=== PATIENT | male | born 1980 | race Caucasian/White ===

== ENCOUNTER 2021-05-13 12:21 | Emergency (ER) | payer SELFPAY ==
[~2021-05-13] VITALS: Ht 175.3 cm; Wt 90.7 kg
[2021-05-13] MEDS ORDERED: CASIRIVIMAB/IMDEVIMAB 10 ML in SODIUM CHLORIDE 0.9% 100 ML IV ONE ×4 (12:30)
[2021-05-13] MEDS ORDERED: SODIUM CHLORIDE 0.9% 500ML 500 ML IV ONE (12:45)
[2021-05-13] MEDS ORDERED: IBUPROFEN 800MG/ 200ML 200 ML IV ONE (13:00)
[2021-05-13 14:31] VITALS: BP 151/82
== END 2021-05-13 14:34 | disposition home or self-care (01) ==
LOC: ER 12:27
DX: U07.1 COVID-19 (principal); R50.9 Fever, unspecified; R05.9 Cough, unspecified
CPT/HCPCS: 99283; J7040; J7050